=== PATIENT | female | born 2005 | race African-American/Black ===

== ENCOUNTER 2023-01-07 20:17 | Emergency (ER) | payer BC ==
[~2023-01-07] VITALS: Ht 167.6 cm; Wt 42.0 kg
[2023-01-07 20:47] VITALS: BP 103/57; RESP 20; TEMP 99.1; O2SAT 100
[2023-01-07 20:49] VITALS: PULSE 111
[2023-01-07] MEDS ORDERED: KETOROLAC 30MG/ML VIAL IV STA (22:57)
[2023-01-07] MEDS ORDERED: FAMOTIDINE 20MG/2ML VIAL IV ONE (23:00)
[2023-01-07] MEDS ORDERED: ONDANSETRON HCL 4MG/2ML INJ IV ONE (23:00)
[2023-01-07] MEDS ORDERED: SODIUM CHLORIDE 0.9% 1,000 ML IV ONE (23:15)
[2023-01-07 23:17] LABS: BASOPHILS % 0.3 % (0.0-2.0); EOSINOPHILS % 0.5 % (0.0-5.0); HEMATOCRIT. 39.4 % (36.0-48.0); HEMOGLOBIN. 13.3 g/dL (12.0-16.0); LYMPHOCYTES % 13.1 % (20.0-50.0); MEAN CORPUSCULAR HEMOGLOBIN 30.7 pg (28.0-32.0); MEAN CORPUSCULAR HGB CONC 33.9 g/dL (31.0-37.0); MEAN CORPUSCULAR VOLUME 90.6 fL (81.0-99.0); MEAN PLATELET VOLUME 8.9 fl (7.4-10.4); MONOCYTES % 7.5 % (2.0-8.0); NEUTROPHILS % 78.6 % (40.0-76.0); PLATELET 362 x1000/uL (130-400); RED BLOOD CELL COUNT 4.35 mill/uL (4.2-5.4); RED CELL DISTRIBUTION WIDTH 13.4 % (11.6-14.6); WHITE BLOOD COUNT 6.9 x1000/uL (4.5-11.0)
[2023-01-07 23:27] LABS: CLARITY URINE CLEAR (CLEAR); COLOR URINE YELLOW (YELLOW); PROTEIN URINE TRACE (NEGATIVE); SPECIFIC GRAVITY URINE 1.015 (1.005-1.030)
[2023-01-07 23:28] LABS: GLUCOSE URINE NEGATIVE (NEGATIVE); KETONES URINE 2+ (NEGATIVE); LEUKOCYTE ESTERASE URINE NEGATIVE (NEGATIVE); NITRITE URINE NEGATIVE (NEGATIVE); OCCULT BLOOD URINE TRACE (NEGATIVE)
[2023-01-07 23:32] LABS: ALANINE AMINOTRANSFERASE 29 IU/L (10-49); ALBUMIN 4.6 g/dL (3.2-4.8); ASPARTATE AMINOTRANSFERASE 24 IU/L (<34); BACTERIA URINE 2+; CALCIUM 9.3 mg/dL (8.7-10.4); CARBON DIOXIDE 21 mEq/L (21-32); CHLORIDE 104 mEq/L (98-107); CREATININE 0.8 mg/dL (0.6-1.0); GLUCOSE 90 mg/dL (70-105); POTASSIUM 3.7 mEq/L (3.5-5.1); PROTEIN TOTAL 7.3 g/dL (6.0-8.3); RBC URINE 0-2 /hpf (0-2); SODIUM 138 mEq/L (136-145); SQUAMOUS EPITHELIAL CELL URINE FEW /lpf (RARE/1+); WBC URINE 0-2 /hpf (0-2)
[2023-01-07 23:36] LABS: UREA NITROGEN BLOOD < 5 mg/dL (9-23)
[2023-01-08] MEDS ORDERED: ONDA4TAB11 PO (00:55)
[2023-01-08] MEDS ORDERED: BISM-77 PO (00:55)
[2023-01-08] MEDS ORDERED: ACET-2708 PO (00:55)
== END 2023-01-08 01:55 | disposition home or self-care (01) ==
LOC: ER 20:17
DX: K52.9 Noninfective gastroenteritis and colitis, unspecified (principal); R11.2 Nausea with vomiting, unspecified; M79.10 Myalgia, unspecified site
CPT/HCPCS: 80053; 81003; 81025; 83690; 85025; 36415; 96361; 96374; 96375; 99284; J3490; J1885; J2405; J7030; Z7610